=== PATIENT | female | born 1995 | race Caucasian/White ===

== ENCOUNTER 2023-03-24 15:10 | Inpatient (IN) | payer MEDICAID, SELFPAY ==
[2023-03-24 15:22] VITALS: BP 143/77; PULSE 95; TEMP 36.6; O2SAT 95; BMI 41.1
--- NOTE | 2023-03-24 15:45 | CTR_ITS ---
PROCEDURE INFORMATION: Exam: CT Head Without Contrast Exam date and time: 03/24/2023 4:30 PM Age: 27 years old Clinical indication: Pain; Headache; Migraine; Additional info: Persistent headache TECHNIQUE: Imaging protocol: Computed tomography of the head without contrast. Axial, coronal and sagittal reformatted images were created and reviewed. Radiation optimization: All CT scans at this facility use at least one of these dose optimization techniques: automated exposure control; mA and/or kV adjustment per patient size (includes targeted exams where dose is matched to clinical indication); or iterative reconstruction. REPORTING DATA: Count of CT and Cardiac NM exams in prior 12 months: This patient has received 0 known CTs and 0 known cardiac nuclear medicine studies in the 12 months prior to the current study. COMPARISON: No relevant prior studies available. RADIATION DOSE METRICS: Total DLP (mGy-cm): 1080.89 FINDINGS: Brain: No CT evidence of acute intracranial hemorrhage or acute territorial infarction. No significant mass effect or midline shift. Basal cisterns patent. Cerebral ventricles: Normal in size and configuration. Paranasal sinuses: Mild polypoid right maxillary sinus mucosal thickening. Mastoid air cells: Grossly unremarkable. Bones/joints: No acute osseous abnormality. Soft tissues: Grossly unremarkable. CT/CT head wo con* [id number] IMPRESSION: 1[address] No CT evidence of acute intracranial pathology. 2. Additional findings, as above.
--- NOTE | 2023-03-24 15:59 | PC.PHAR ---
PT STATES TAKES CHLORPROMAZINE 50 MG THREE TIMES DAILY. CLONAZEPAM 1 MG TWICE DAILY NEEDED. PRAZOSIN 2 MG EVERY EVENING. QETIAPINE 300 MG EVERY EVENING. MELATONIN 5 MG (NOT SURE WHAT STRENGTH) EVERY EVENING. [facility] STATES SHE IS NO LONGER A CLIENT THERE AND DO NOT SHOW HER IN ANY OF THE REMAINING HOMES IN [place]. 03/24/23
[2023-03-24 16:18] LABS: Basophils # 0.1 10^3/uL (0.0-0.1); Basophils % 0.7 %; Eosinophils # 0.1 10^3/uL (0.0-0.8); Eosinophils % 1.9 %; Hematocrit 41.3 % (36-47); Lymphocytes # 2.9 10^3/uL (0.8-4.8); Lymphocytes % 38.9 %; Mean Corpuscular HGB Conc 33.2 g/dL (30-55); Mean Corpuscular Hemoglobin 30.1 pg (27-33); Mean Corpuscular Volume 90.8 fl (85-98); Mean Platelet Volume 10.9 fL (7.4-10.4); Monocytes # 0.5 10^3/uL (0.2-0.9); Monocytes % 6.5 %; Neutrophils # 3.79 10^3/uL (1.8-7.7); Neutrophils % 51.7 %; Nucleated Red Blood Cells % 0 %; Platelet Count 231 10^3/cmm (157-399); Red Blood Count 4.55 10^6/uL (3.85-5.65); Red Cell Distribution Width 12.6 % (12.1-15.1); White Blood Count 7.33 10^3/uL (3.29-11.43)
--- NOTE | 2023-03-24 16:21 | W.ED.GENADLT ---
HPI - General Adult General: Chief complaint: Psychiatric Symptoms Stated complaint: Gen weakness/ Headache Time Seen by Provider: 03/24/23 15:19 History of Present Illness: 27-year-old female presents to the emergency department chief complaint of acute on chronic headache. Patient reports she been having the most recent headache the last couple of days reports she had been off medication for quite some time patient does report having history of bipolar and PTSD patient reports that she is away from her house where she normally lives she reports no other associated symptoms reports she did not take any medications for this prior to arrival. Patient endorses moderate nausea with her headache she reports no photophobia or any recent injury. Patient presents via EMS for further assessment and management Associated symptoms: Reports headache(s); Deny chest pain, dyspnea, malaise, nausea, rash, palpitations or vomiting Review of Systems General: Reports: 10 or more systems reviewed and unremarkable except in HPI and below Const: Denies: fever(s), chills, fatigue or malaise Eyes: Denies: change in vision or blurry vision Card: Denies: chest pain or palpitations Resp: Denies: dyspnea or productive cough GI: Denies: abdominal pain, nausea or vomiting : Denies: flank pain Musc: Denies: extremity pain or extremity swelling Skin/Breast: Denies: rash or pruritus Neuro: Reports: headache(s) and dizziness Psych: Denies: anxiety or depression Arron/Lymph: Denies: easy bleeding All/Imm: Denies: urticaria, throat swelling or facial swelling Physical Exam Narrative: EXAM NARRATIVE: Patient currently complaining of a headache no focal neurodeficits appreciated exam patient is does have some photophobia on exam Const: COMMON NORMALS: no acute distress, patient oriented x3 and healthy appearing HENMT: COMMON NORMALS: normocephalic and atraumatic HEAD & SCALP: normocephalic and atraumatic Eye: COMMON NORMALS: Equal, round and reactive pupils present and EOMs intact bilaterally PUPIL: Yes Equal, round and reactive pupils present Neck/C-Spine: COMMON NORMALS: full ROM, supple and no JVD Lymph: LYMPHATIC: no lymphadenopathy noted Chest: COMMONS NORMALS: normal inspection of the chest and normal palpation of entire chest wall Resp: COMMON NORMALS: normal respiratory effort, No retractions and clear to auscultation bilaterally EFFORT & INSPECTION: Yes able to speak in complete sentences and Yes symmetric chest movement AUSCULTATION: clear to auscultation bilaterally Cardio: COMMON NORMALS: no JVD, regular rate and regular rhythm RATE: regular rate RHYTHM: regular rhythm GI: COMMON NORMALS: Normal to inspection, nondistended, normoactive bowel sounds present, Soft to palpation and non-tender INSPECTION: Yes normal to inspection PALPATION: Yes Soft to palpation : COMMON NORMALS: Yes no CVA tenderness BLADDER/KIDNEY EXAM: Yes no CVA tenderness Back/Pelvis: COMMON NORMALS: no CVA tenderness Extremity: COMMON NORMALS: normal to inspection and full ROM Neuro: COMMON NORMALS: patient oriented x3, CN's II-XII intact bilaterally, moves all extremities and no focal motor deficits Psych: COMMON NORMALS: mental status grossly normal, Normal thought process present, cooperative and normal affect THOUGHT PROCESS: Normal thought process present Skin: COMMON NORMALS: no rashes or lesions noted GENERAL SKIN EXAM: no rashes or lesions noted Course Vital Signs: Vital signs: Vital Signs Temperature 97.9 F 03/24/23 15:22 Pulse Rate 95 03/24/23 15:22 Blood Pressure 143/77 03/24/23 15:22 Pulse Oximetry 95 03/24/23 15:22 Oxygen Delivery Me thod Room Air 03/24/23 15:22 MDM - General Adult Medical Decision Making Upon direct questioning no suicidal homicidal thoughts or ideation it has been brought to my attention however the patient is a runaway from a reported court ordered 96-hour skilled nursing hold in [facility] we will do a medical screening examination patient does not have her own guardian in which she is under the guardianship of the state, currently risk-management is involved in making further phone calls in regards this patient's case will do medical screening examination and treat as needed. Discussed patient's case with risk-management in which patient has had 2 affidavits she is not only a guardian which is recommended patient admitted to Dr. Falk due to her 96-hour hold placed in [place] area the patient remained in stable condition at this time. Lab Data 03/24/23 16:04 03/24/23 16:[address] 03/24/23 15:[address]: [address] evidence of acute intracranial pathology. 2. Additional findings, as above. Laboratory Results WBC 7.33 10^3/uL (3.29-11.43) 03/24/23 16:04 RBC 4.55 10^6/uL (3.85-5.65) 03/24/23 16:04 Hgb 13.70 g/dL (11.27-16.99) 03/24/23 16:04 Hct 41.3 % (36-47) 03/24/23 16:04 MCV 90.8 fl (85-98) 03/24/23 16:04 MCH 30.1 pg (27-33) 03/24/23 16:04 MCHC 33.2 g/dL (30-55) 03/24/23 16:04 RDW 12.6 % (12.1-15.1) 03/24/23 16:04 Plt Count 231 10^3/cmm (157-399) 03/24/23 16:04 MPV 10.9 fL (7.4-10.4) H 03/24/23 16:04 Neut % (Auto) 51.7 % 03/24/23 16:04 Lymph % (Auto) 38.9 % 03/24/23 16:04 [place] % (Auto) 6.5 % 03/24/23 16:04 Eos % (Auto) 1.9 % 03/24/23 16:04 Baso % (Auto) 0.7 % 03/24/23 16:04 Neut # (Auto) 3.79 10^3/uL (1.8-7.7) 03/24/23 16:04 Lymph # (Auto) 2.9 10^3/uL (0.8-4.8) 03/24/23 16:04 [place] # (Auto) 0.5 10^3/uL (0.2-0.9) 03/24/23 16:04 Eos # (Auto) 0.1 10^3/uL (0.0-0.8) 03/24/23 16:04 Baso # (Auto) 0.1 10^3/uL (0.0-0.1) 03/24/23 16:04 Nucleated RBC % (auto) 0 % 03/24/23 16:04 Nucleated RBCs # 0.0 /100WBC 03/24/23 16:04 Sodium 144 mmol/L (136-145) 03/24/23 16:04 Potassium 3.2 mmol/L (3.5-5.1) L 03/24/23 16:04 Chloride 104 mmol/L (98-107) 03/24/23 16:04 Carbon Dioxide 32 mmol/L (22-29) H 03/24/23 16:04 Anion Gap 11.2 (5-19) 03/24/23 16:04 BUN 12 mg/dL (6-20) 03/24/23 16:04 Creatinine 0.7 mg/dL (0.5-0.9) 03/24/23 16:04 GFR Calculation 100.4 mL/min (90-130) 03/24/23 16:04 Glucose 108 mg/dL (65-115) 03/24/23 16:04 Calculated Osmolality 298 mOsm/kg (285-295) H 03/24/23 16:04 Calcium 9.3 mg/dL (8.5-10.5) 03/24/23 16:04 Total Bilirubin 0.2 mg/dL (0.15-1.2) 03/24/23 16:04 AST 20 U/L (0-32) 03/24/23 16:04 ALT 29 U/L (0-33) 03/24/23 16:04 Alkaline Phosphatase 63 U/L (35-105) 03/24/23 16:04 Total Protein 6.5 g/dL (6.6-8.7) L 03/24/23 16:04 Albumin 4.2 g/dL (3.5-5.2) 03/24/23 16:04 Globulin 2.3 g/dL (1.3-4.6) 03/24/23 16:04 Urine Color Dark yellow (Yellow) 03/24/23 16:29 Urine Appearance Sl cloudy (CLEAR) A 03/24/23 16:29 Urine pH 6 (5-7) 03/24/23 16:29 Ur Specific [place] 1.025 (1.005-1.030) 03/24/23 16:29 Urine Protein Neg (Negative) 03/24/23 16:29 Urine Glucose (UA) Norm (Normal) 03/24/23 16:29 Urine Ketones Negative (Negative) 03/24/23 16:29 Urine Blood 2+ (Negative) H 03/24/23 16:29 Urine Nitrate Negative (Negative) 03/24/23 16:29 Urine Bilirubin 1+ (Negative) H 03/24/23 16:29 Urine Urobilinogen 1 mg/dL (Negative) H 03/24/23 16:29 Ur Leukocyte Esterase Negative (Negative) 03/24/23 16:29 Urine RBC 0-4 /hpf (0-2) H 03/24/23 16:29 Urine WBC 0-4 /hpf (0-5) H 03/24/23 16:29 Ur Squamous Epith Cells 25-40 /hpf (0-5) H 03/24/23 16:29 Calcium Oxalate Crystal 0-4 /hpf H 03/24/23 16:29 Amorphous Sediment Not Reportable 03/24/23 16:29 Urine Bacteria 1+ /hpf (NONE) H 03/24/23 16:29 Urine Mucus 1+ /hpf 03/24/23 16:29 Salicylates 1.0 mg/dL (3-10) L 03/24/23 16:04 Acetaminophen < 5.0 ug/mL (10-30) L 03/24/23 16:04 Ethyl Alcohol < 10 mg/dL (0-10) 03/24/23 16:04 Discharge Plan Discharge Patient Disposition: Admitted As Inpatient Admit Provider: Fernie Falk Clinical Impression: Acute psychosis, Depression Condition: Stable Coding Level of Care Code ED [employer] for Bhavik Nash
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
[2023-03-24 16:34] LABS: Alanine Aminotransferase 29 U/L (0-33); Albumin Level 4.2 g/dL (3.5-5.2); Alkaline Phosphatase 63 U/L (35-105); Anion Gap 11.2 (5-19); Aspartate Amino Transferase 20 U/L (0-32); Blood Urea Nitrogen 12 mg/dL (6-20); Calcium 9.3 mg/dL (8.5-10.5); Carbon Dioxide 32 mmol/L (22-29); Chloride 104 mmol/L (98-107); Globulin 2.3 g/dL (1.3-4.6); Glomerular Filtration Rate 100.4 mL/min (90-130); Glucose 108 mg/dL (65-115); Osmolality Calculated 298 mOsm/kg (285-295); Potassium 3.2 mmol/L (3.5-5.1); Sodium 144 mmol/L (136-145); Total Bilirubin 0.2 mg/dL (0.15-1.2); Total Protein 6.5 g/dL (6.6-8.7)
[2023-03-24 16:35] LABS: Acetaminophen < 5.0 ug/mL (10-30); Alcohol Level < 10 mg/dL (0-10)
--- NOTE | 2023-03-24 16:47 | PC.NURSE ---
PT CHANGED INTO GREEN SCRUBS, PLACED IN PSYCH ROOM, PSA OUTSIDE. DOOR SHUT, CURTAINS OPEN.
[2023-03-24] MEDS: sodium chloride 0.9% 1,000 ML 999 ML IV (16:53)
[2023-03-24] MEDS: dexamethasone 10 mg/mL INJ IVP (16:55)
[2023-03-24] MEDS: ketorolac 30 mg/mL INJ IVP (16:55)
[2023-03-24] MEDS: diphenhydrAMINE 50 mg/mL SDV 1mL 25 MG IVP (16:55)
[2023-03-24 17:17] VITALS: BP 124/91; PULSE 96; RESP 18; TEMP 36.9; O2SAT 96
[2023-03-24 17:55] LABS: Bilirubin Urine 1+ (Negative); Glucose Urine UA Norm (Normal); Ketones Urine Negative (Negative); Nitrate Urine Negative (Negative); Protein Urine Neg (Negative); Specific Gravity, Urine 1.025 (1.005-1.030); Urine Color Dark Yellow (Yellow); pH Urine 6 (5-7)
[2023-03-24 17:56] LABS: Add Urine Microscopic? YES; Bacteria Urine 1+ /hpf; Blood Urine 2+ (Negative); Calcium Oxalate Crystals Urine 0-4 /hpf; Leukocyte Esterase Urine Negative (Negative); Mucus Urine 1+ /hpf; RBC Urine 0-4 /hpf (0-2); Squamous Epithelial Cell Urine 25-40 /hpf (0-5); Urobilinogen Urine 1 mg/dL (Negative); WBC Urine 0-4 /hpf (0-5)
[2023-03-24 17:57] LABS: Add Urine Culture? No
[2023-03-24 18:19] LABS: Amphetamines Screen Urine Positive (Negative); Barbiturates Screen Urine Negative (Negative); Benzodiazepines Screen Urine Negative (Negative); Cocaine Screen Urine Negative (Negative); Opiate Screen Urine Negative (Negative); PCP Screen Urine Negative (Negative); THC Screen Urine Positive (Negative)
[2023-03-24 20:01] LABS: Adenovirus Not Detected (NOT DETECT); Chlamydia Pneumoniae Not Detected (NOT DETECT); Coronavirus 229E,HKU1,NL63,OC4 Not Detected (NOT DETECT); Human Metapneumovirus Not Detected (NOT DETECT); Human Rhinovirus/Enterovirus Not Detected (NOT DETECT); Influenza A Not Detected (NOT DETECT); Influenza A H1 Not Detected (NOT DETECT); Influenza A H1-2009 Not Detected (NOT DETECT); Influenza A H3 Not Detected (NOT DETECT); Influenza B Not Detected (NOT DETECT); Mycoplasma Pneumoniae Not Detected (NOT DETECT); Parainfluenza Virus Type 1 Not Detected (NOT DETECT); Parainfluenza Virus Type 2 Not Detected (NOT DETECT); Parainfluenza Virus Type 3 Not Detected (NOT DETECT); Parainfluenza Virus Type 4 Not Detected (NOT DETECT); Respiratory Syncytial Virus A Not Detected (NOT DETECT); Respiratory Syncytial Virus B Not Detected (NOT DETECT); SARS-COV-2 Not Detected (NOT DETECT)
[2023-03-24] MEDS: quetiapine 300 mg Tablet PO (20:28)
[2023-03-24] MEDS: prazosin 1 mg Capsule 2 MG PO (20:28)
[2023-03-24] MEDS: chlorPROMazine 50 mg Tablet PO (20:28)
--- NOTE | 2023-03-24 20:34 | PC.NURSE ---
PT RESTING IN BED. PT REFUSED VITALS AND SHIFT ASSESSMENT. WHEN STAFF ENTERS ROOM PT REMAINS IN BED WITH EYES CLOSED AND SAYS SHE DOES NOT WANT TO BE BOTHERED. THIS DATABASE MARKETING MANAGER ATTEMPTED TO CALL GUARDIAN AT THE NUMBER PROVIDED BUT HAD TO LEAVE A VM @ 1999.
--- NOTE | 2023-03-24 20:52 | PC.NURSE ---
This tech went into patients room to do vitals. Patient was laying down wrapped up in a blanket. Stated no i just cant no No vitals taken
[2023-03-25 06:00] VITALS: BP 91/58; PULSE 83; RESP 20; TEMP 36.9; O2SAT 97
[2023-03-25] MEDS: chlorPROMazine 50 mg Tablet PO ×3 (08:41→19:57)
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
[2023-03-25 14:00] VITALS: BP 120/74; PULSE 89; RESP 17; TEMP 37; O2SAT 96
[2023-03-25] MEDS: acetaminophen 325 mg Tablet 650 MG PO (18:18)
[2023-03-25] MEDS: hyDROXYzine 25 mg Capsule 50 MG PO (18:18)
[2023-03-25] MEDS: prazosin 1 mg Capsule 2 MG PO (19:56)
[2023-03-25] MEDS: quetiapine 300 mg Tablet PO (19:57)
[2023-03-25] MEDS: magnesium hydroxide 30 mL UDC PO (19:57)
[2023-03-25 20:04] VITALS: BP 130/85; PULSE 120; RESP 20; TEMP 37; O2SAT 96
--- NOTE | 2023-03-25 20:43 | PC.NURSE ---
RESTING IN BED UPON ASSESSMENT. PT DID NOT WANT TO SPEAK WITH RN BUT DID ANSWER QUESTIONS YES/NO. PT STATES SHE HAS NOT HAD A BM IN A REALLY LONG TIME. NEW ORDERS RECEIVED FOR MOM 30 MLS PO DAILY PRN. BOWEL SOUNDS HYPOACTIVE IN ALL FOUR QUADRANTS, ROUND SOFT AND NON TENDER. PT TOOK PM MEDS AND MOM ORDERED. PT EDUCATED TO REPORT IF SHE HAS A BM. DENIES PAIN, SI/HI AND AVH AT THIS TIME. ALL QUESTIONS ANSWERED AND SUPPORT VOICED.
[2023-03-26 06:00] VITALS: RESP 18
[2023-03-26] MEDS: chlorPROMazine 50 mg Tablet PO ×3 (09:09→19:55)
--- NOTE | 2023-03-26 10:27 | W.PM.NPUPNS ---
Subjective NPU Subjective: Patient presented today slightly more engaging in the interview. She was willing to be more communicative but basically spent the entire time describing the fact that she did not need any interventions and did not need to be there. However she did not have any trauma for the positive drug screens and likely drug use. She was ambivalent about discussion about sober living treatment. Mental Status Exam MSE Comments: This is an obese versus morbidly obese white female in hospital scrubs with poor grooming and limited eye contact. No abnormal movements except for psychomotor retardation. More cooperative with exam in mild distress. Speech was very limited and decreased rate and volume. Mood not described, affect subdued. Thought process linear. Thought content: Patient did not report suicidal or homicidal ideation, there were no delusions reported or noted, though she did appear quite guarded she did not report auditory or visual hallucinations and did not appear to be attending to internal stimuli. Attention and concentration were limited and memory was unreliable but none were formally tested. She is alert and oriented times person and place. Insight, judgment and impulse control are impaired. Intellectual ability is limited versus impaired. Vitals/I&O/Wt Last Vital Signs Temp 98.6 F 03/25/23 20:04 Pulse 120 H 03/25/23 20:04 Resp 18 03/26/23 06:00 BP 130/85 03/25/23 20:04 Pulse Ox 96 03/25/23 20:04 O2 Del Method Room Air 03/25/23 20:04 Weight last 48 hrs Weight 108.862 kg Data NPU 03/24/23 16:04 03/24/23 16:04 A&P Assessment and plan (1) Acute psychosis: (2) Depression: (3) Intellectual disability: (4) Impulse control disorder in adult: (5) Cannabis use disorder: (6) Methamphetamine use disorder, severe: Plan This is a 27-year-old white female with a long history of intellectual disability and mental health challenges who presented hours away from her home after reportedly running away from her correction setting as a reluctant or resistant historian. 1. Continue current medication. We will talk to family about whether there would be some benefit to changes. 2. Continue every 15 minute checks for safety. 3. Encourage individual, group and milieu therapy. 4. Family reportedly desiring placement in a locked facility. We can likely assist with the level 2 placement but unclear whether there is an indication for us to keep her until that placement occurs. [facility]. Involuntary Hold Information 96 Hour Hold: 96 Hour Involuntary Admission: No Attestations NPU Medical Necessity Statement*: Inpatient hospitalization is medically necessary and the clinically appropriate intervention at this time. We will monitor medications and make changes as indicated. Likely length of stay 3 to 5 days. Coding Level of Care Code Acute Code for g Fwd Diagnoses Acute psychosis F23 Depression F32.A Intellectual disability F79 Impulse control disorder in adult F63.9 Cannabis use disorder F12.90 Methamphetamine use disorder, severe F15.20
--- NOTE | 2023-03-26 13:52 | PC.NURSE ---
Patient refusing to talk with nurses and refusing vitals.
[2023-03-26 14:00] VITALS: RESP 17
[2023-03-26 15:25] VITALS: BP 132/86; PULSE 88; RESP 18; TEMP 37.1; O2SAT 97
[2023-03-26] MEDS: acetaminophen 325 mg Tablet 650 MG PO (17:54)
[2023-03-26] MEDS: hyDROXYzine 25 mg Capsule 50 MG PO (17:54)
--- NOTE | 2023-03-26 19:42 | NUR.SHIFT ---
pt refusing to talk with nurse, when I asked if I could listen to her heart and lungs, patient stated, no they're fine
[2023-03-26] MEDS: prazosin 1 mg Capsule 2 MG PO (19:55)
[2023-03-26] MEDS: quetiapine 300 mg Tablet PO (19:55)
--- NOTE | 2023-03-26 20:14 | PC.NURSE ---
This tech accompanied by the COMMERCIAL ACCOUNT OFFICER went into patients room to obtain vitals. Patient stated what. This tech told patients that I needed to get her vitals. Patient stated no that her vitals were fine. I let patient know that we really needed her vitals. Patient again stated that they were fine and refused.
--- NOTE | 2023-03-27 06:24 | PC.NURSE ---
Tech and MOSAIC TECHNICIAN went into the patients room to obtain vitals. I let patient know that we needed her vitals and patient stated no way . Not hearing patient clearly This tech asked again and patient stated I said no way Unable to obtain vitals again due to patient refusal.
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
[2023-03-27] MEDS: chlorPROMazine 50 mg Tablet PO ×3 (08:57→20:29)
[2023-03-27 14:40] VITALS: BP 127/84
--- NOTE | 2023-03-27 14:40 | PC.NURSE ---
patient refused to have the rest of her vitals taken, B/P only done
[2023-03-27] MEDS: nicotine 2 mg Gum BUCCAL (16:38)
[2023-03-27] MEDS: acetaminophen 325 mg Tablet 650 MG PO (18:31)
[2023-03-27 20:05] VITALS: BP 144/88; PULSE 101; RESP 16; TEMP 36.6; O2SAT 99
[2023-03-27] MEDS: prazosin 1 mg Capsule 2 MG PO (20:29)
[2023-03-27] MEDS: quetiapine 300 mg Tablet PO (20:29)
[2023-03-27] MEDS: trazodone 50 mg Tablet PO (20:29)
[2023-03-28 06:00] VITALS: BP 105/71; PULSE 72; RESP 16; O2SAT 97
--- NOTE | 2023-03-28 07:52 | P.NPUPN_ITS ---
Subjective NPU Subjective: Patient presents today continuing her improvement of spontaneity per reports and interview. She continues to endorse that she is fine and can return to the [facility]. We discussed a plan to talk with her family to determine our next move. Mental Status Exam MSE Comments: This is an obese versus morbidly obese white female in hospital scrubs with poor grooming and limited eye contact. No abnormal movements except for psychomotor retardation. More cooperative with exam in mild distress. Speech was more spontaneous and decreased rate and volume. Mood described as better, affect less subdued. Thought process linear. Thought content: Patient did not report suicidal or homicidal ideation, there were no delusions reported or noted, though she did appear quite guarded she did not report auditory or visual hallucinations and did not appear to be attending to internal stimuli. Attention and concentration were limited and memory was unreliable but none were formally tested. She is alert and oriented times person and place. Insight, judgment and impulse control are impaired. Intellectual ability is limited versus impaired. Vitals/I&O/Wt Last Vital Signs Temp 97.8 F 03/27/23 20:05 Pulse 72 03/28/23 06:00 Resp 16 03/28/23 06:00 BP 105/71 03/28/23 06:00 Pulse Ox 97 03/28/23 06:00 O2 Del Method Room Air 03/26/23 15:25 Weight last 48 hrs Weight 116.392 kg Data NPU 03/24/23 16:04 03/24/23 16:04 A&P Assessment and plan (1) Acute psychosis: (2) Depression: (3) Intellectual disability: (4) Impulse control disorder in adult: (5) Cannabis use disorder: (6) Methamphetamine use disorder, severe: Plan This is a 27-year-old white female with a long history of intellectual disability and mental health challenges who presented hours away from her home after reportedly running away from her [facility]dc setting as a reluctant or resistant historian. 1. Continue current medication. We will talk to family about whether there would be some benefit to changes. 2. Continue every 15 minute checks for safety. 3. Encourage individual, group and milieu therapy. 4. Family reportedly desiring placement in a locked facility. We can likely assist with the level 2 placement but unclear whether there is an indication for us to keep her until that placement occurs. Likely discharge back to [facility]. Involuntary Hold Information 96 Hour Hold: 96 Hour Involuntary Admission: No Attestations NPU Medical Necessity Statement*: Inpatient hospitalization is medically necessary and the clinically appropriate intervention at this time. We will monitor medications and make changes as indicated. Likely length of stay 2-4 days. Coding Level of Care Code Acute Code for Chg Fwd Diagnoses Acute psychosis F23 Depression F32.A Intellectual disability F79 Impulse control disorder in adult F63.9 Cannabis use disorder F12.90 Methamphetamine use disorder, severe F15.20
[2023-03-28] MEDS: chlorPROMazine 50 mg Tablet PO ×3 (12:03→20:14)
[2023-03-28] MEDS: acetaminophen 325 mg Tablet 650 MG PO (12:19)
[2023-03-28 12:58] VITALS: BP 99/65; PULSE 91; RESP 14; TEMP 36.9; O2SAT 100
[2023-03-28 20:08] VITALS: BP 103/70; PULSE 81; RESP 12; O2SAT 96
[2023-03-28] MEDS: quetiapine 300 mg Tablet PO (20:14)
[2023-03-28] MEDS: prazosin 1 mg Capsule 2 MG PO (20:14)
[2023-03-29] MEDS: chlorPROMazine 50 mg Tablet PO ×3 (09:34→21:36)
--- NOTE | 2023-03-29 09:51 | PC.NURSE ---
During morning assessment, patient reports feeling like her head is mixed up. Patient says she has felt this way before, and couldn't identify a trigger. Patient reports occassional AVH--denies being told to harm self or others. Patient cooperative during assessment. Patient denies anxiety, depression, SI, and HI.
[2023-03-29 13:14] VITALS: BP 94/62; PULSE 100; RESP 16; TEMP 36.8; O2SAT 96
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
[2023-03-29] MEDS: acetaminophen 325 mg Tablet 650 MG PO ×2 (17:43→23:49)
[2023-03-29] MEDS: nicotine 2 mg Gum BUCCAL (17:44)
[2023-03-29] MEDS: hyDROXYzine 25 mg Capsule 50 MG PO (18:37)
[2023-03-29 19:56] VITALS: BP 96/63; PULSE 70; RESP 15; TEMP 36.6; O2SAT 98
[2023-03-29] MEDS: trazodone 50 mg Tablet PO (19:57)
[2023-03-29] MEDS: prazosin 1 mg Capsule 2 MG PO (21:36)
[2023-03-29] MEDS: quetiapine 300 mg Tablet PO (21:36)
[2023-03-30 06:41] VITALS: BP 98/61; PULSE 71; RESP 17; TEMP 37; O2SAT 96
[2023-03-30] MEDS: CLONazepam 1 mg Tablet PO ×2 (08:25→20:04)
[2023-03-30] MEDS: chlorPROMazine 50 mg Tablet PO ×3 (08:25→20:04)
[2023-03-30] MEDS: nicotine 2 mg Gum BUCCAL ×3 (08:58→19:06)
--- NOTE | 2023-03-30 13:01 | W.PM.NPUPNS ---
Subjective NPU Subjective: Patient presented today reporting that she is doing okay. We discussed her guardian not being communicative about concerns about discharge with no clear issue now that she is taking her medication and sober. Hoping to speak with guardian by tomorrow and if no additional information is presented we discussed the likelihood of discharge on . We discussed that we did complete the level 2 paperwork and that that option would still be available for family and guardian. She denies any issues with her medications which she is taking appropriately. Mental Status Exam MSE Comments: This is an obese versus morbidly obese white female in hospital scrubs with poor grooming and limited eye contact. No abnormal movements except for psychomotor retardation. More cooperative with exam in mild distress. Speech was more spontaneous and decreased rate and volume. Mood described as better, affect less subdued. Thought process linear. Thought content: Patient did not report suicidal or homicidal ideation, there were no delusions reported or noted, though she did appear quite guarded she did not report auditory or visual hallucinations and did not appear to be attending to internal stimuli. Attention and concentration were limited and memory was unreliable but none were formally tested. She is alert and oriented times person and place. Insight, judgment and impulse control are impaired. Intellectual ability is limited versus impaired. Vitals/I&O/Wt Last Vital Signs Temp 98.6 F 03/30/23 06:41 Pulse 71 03/30/23 06:41 Resp 17 03/30/23 06:41 BP 98/61 03/30/23 06:41 Pulse Ox 96 03/30/23 06:41 O2 Del Method Room Air 03/29/23 19:56 Data NPU 03/24/23 16:04 03/24/23 16:04 A&P Assessment and plan (1) Acute psychosis: (2) Depression: (3) Intellectual disability: (4) Impulse control disorder in adult: (5) Cannabis use disorder: (6) Methamphetamine use disorder, severe: Plan This is a 27-year-old white female with a long history of intellectual disability and mental health challenges who presented hours away from her home after reportedly running away from her intermediate setting as a reluctant or resistant historian. 1. Continue current medication. 2. Continue every 15 minute checks for safety. 3. Encourage individual, group and milieu therapy. 4. Family/guardian reportedly desiring placement in a locked facility. We can likely assist with the level 2 placement but unclear whether there is an indication for us to keep her until that placement occurs. Likely discharge back to [facility]. Level 2 documentation prepared. Trying to connect with guardian about whether medical necessity exists for hospitalization until when this new facility would be ready. Current plan for discharge on . Involuntary Hold Information 96 Hour Hold: 96 Hour Involuntary Admission: No Attestations NPU Medical Necessity Statement*: Inpatient hospitalization is medically necessary and the clinically appropriate intervention at this time. We will monitor medications and make changes as indicated. Likely length of stay 1-3 days. Coding Level of Care Code Acute Code for Chg Fwd Diagnoses Acute psychosis F23 Depression F32.A Intellectual disability F79 Impulse control disorder in adult F63.9 Cannabis use disorder F12.90 Methamphetamine use disorder, severe F15.20
[2023-03-30 14:15] VITALS: BP 94/56; PULSE 106; RESP 15; TEMP 36.9; O2SAT 96
[2023-03-30] MEDS: acetaminophen 325 mg Tablet 650 MG PO (20:03)
[2023-03-30] MEDS: quetiapine 300 mg Tablet PO (20:04)
[2023-03-30] MEDS: prazosin 1 mg Capsule 2 MG PO (20:04)
[2023-03-30] MEDS: trazodone 50 mg Tablet PO (20:04)
[2023-03-30 20:29] VITALS: BP 108/72; PULSE 116; RESP 18; TEMP 36.5; O2SAT 96
[2023-03-31 06:00] VITALS: RESP 16
[2023-03-31] MEDS: chlorPROMazine 50 mg Tablet PO ×3 (09:07→20:42)
--- NOTE | 2023-03-31 09:49 | P.NPUPN_ITS ---
Subjective NPU Subjective: Patient presented today reporting that she is doing okay. She is reporting that she is just ready to return her to the [facility] and continues to deny a need for more intensive treatment, just better choices. She denies any issues on the unit we discussed still not having a clear discussion with her guardian but plans for likely discharge in the next 48 hours. Mental Status Exam MSE Comments: This is an obese versus morbidly obese white female in hospital scrubs with poor grooming and limited eye contact. No abnormal movements except for psychomotor retardation. More cooperative with exam in mild distress. Speech was more spontaneous and decreased rate and volume. Mood described as better, affect less subdued. Thought process linear. Thought content: Patient did not report suicidal or homicidal ideation, there were no delusions reported or noted, though she did appear quite guarded she did not report auditory or visual hallucinations and did not appear to be attending to internal stimuli. Attention and concentration were limited and memory was unreliable but none were formally tested. She is alert and oriented times person and place. Insight, judgment and impulse control are impaired. Intellectual ability is limited versus impaired. Vitals/I&O/Wt Last Vital Signs Temp 97.7 F 03/30/23 20:29 Pulse 116 H 03/30/23 20:29 Resp 16 03/31/23 06:00 BP 108/72 03/30/23 20:29 Pulse Ox 96 03/30/23 20:29 O2 Del Method Room Air 03/30/23 14:15 Data NPU 03/24/23 16:04 03/24/23 16:04 A&P Assessment and plan (1) Acute psychosis: (2) Depression: (3) Intellectual disability: (4) Impulse control disorder in adult: (5) Cannabis use disorder: (6) Methamphetamine use disorder, severe: Plan This is a 27-year-old white female with a long history of intellectual disability and mental health challenges who presented hours away from her home after reportedly running away from her nursing home setting as a reluctant or resistant historian. 1. Continue current medication. 2. Continue every 15 minute checks for safety. 3. Encourage individual, group and milieu therapy. 4. Family/guardian reportedly desiring placement in a locked facility. We can likely assist with the level 2 placement but unclear whether there is an indication for us to keep her until that placement occurs. Likely discharge b ack to [facility]. Level 2 documentation prepared. Trying to connect with guardian about whether medical necessity exists for hospitalization until when this new facility would be ready. Current plan for discharge on . Involuntary Hold Information 96 Hour Hold: 96 Hour Involuntary Admission: No Attestations NPU Medical Necessity Statement*: Inpatient hospitalization is medically necessary and the clinically appropriate intervention at this time. We will monitor medications and make changes as indicated. Likely length of stay 1-2 days. Coding Level of Care Code Acute Code for g Fwd Diagnoses Acute psychosis F23 Depression F32.A Intellectual disability F79 Impulse control disorder in adult F63.9 Cannabis use disorder F12.90 Methamphetamine use disorder, severe F15.20
[2023-03-31] MEDS: CLONazepam 1 mg Tablet PO (13:22)
[2023-03-31] MEDS: nicotine 2 mg Gum BUCCAL ×2 (13:24→18:28)
[2023-03-31 13:40] VITALS: BP 114/81; PULSE 108; RESP 18; TEMP 36.8; O2SAT 96
[2023-03-31] MEDS: blistex lip oint 7 gm Tube 1 APPLIC TOPICAL ×2 (14:37→18:26)
[2023-03-31 20:22] VITALS: BP 127/85; PULSE 111; RESP 17; TEMP 36.7; O2SAT 97
[2023-03-31] MEDS: trazodone 50 mg Tablet PO (20:40)
[2023-03-31] MEDS: prazosin 1 mg Capsule 2 MG PO (20:41)
[2023-03-31] MEDS: quetiapine 300 mg Tablet PO (20:41)
[2023-03-31] MEDS: ibuprofen 600 mg Tablet PO (21:09)
[2023-04-01 06:00] VITALS: RESP 18
--- NOTE | 2023-04-01 06:36 | PC.NURSE ---
Unable to obtain vitals. Unable to wake patient up due to deeply sleeping.
[2023-04-01] MEDS: nicotine 2 mg Gum BUCCAL ×2 (09:10→11:12)
[2023-04-01] MEDS: chlorPROMazine 50 mg Tablet PO ×3 (09:10→20:13)
[2023-04-01] MEDS: CLONazepam 1 mg Tablet PO ×2 (09:10→20:36)
[2023-04-01] MEDS: blistex lip oint 7 gm Tube 1 APPLIC TOPICAL (11:47)
[2023-04-01 14:00] VITALS: BP 92/58; PULSE 88; RESP 16; TEMP 36.8; O2SAT 97
[2023-04-01 20:09] VITALS: BP 118/78; PULSE 96; RESP 16; TEMP 36.8; O2SAT 97
[2023-04-01] MEDS: prazosin 1 mg Capsule 2 MG PO (20:12)
[2023-04-01] MEDS: quetiapine 300 mg Tablet PO (20:12)
--- NOTE | 2023-04-01 23:55 | W.PM.NPUPNS ---
Subjective NPU Subjective: Patient presented today reporting that she is doing fine. We discussed finally speaking with her guardian's office and that we had a plan that involves her possibly discharging today but likely in the morning. She continues to report a plan to not miss behave or create challenges back at her [facility]. Mental Status Exam MSE Comments: This is an obese versus morbidly obese white female in hospital scrubs with poor grooming and limited eye contact. No abnormal movements except for psychomotor retardation. More cooperative with exam in mild distress. Speech was more spontaneous and decreased rate and volume. Mood described as better, affect less subdued. Thought process linear. Thought content: Patient did not report suicidal or homicidal ideation, there were no delusions reported or noted, though she did appear quite guarded she did not report auditory or visual hallucinations and did not appear to be attending to internal stimuli. Attention and concentration were limited and memory was unreliable but none were formally tested. She is alert and oriented times person and place. Insight, judgment and impulse control are impaired. Intellectual ability is limited versus impaired. Vitals/I&O/Wt Last Vital Signs Temp 98.2 F 04/01/23 20:09 Pulse 96 04/01/23 20:09 Resp 16 04/01/23 20:09 BP 118/78 04/01/23 20:09 Pulse Ox 97 04/01/23 20:09 O2 Del Method Room Air 04/01/23 20:09 Data NPU 03/24/23 16:04 03/24/23 16:04 A&P Assessment and plan (1) Acute psychosis: (2) Depression: (3) Intellectual disability: (4) Impulse control disorder in adult: (5) Cannabis use disorder: (6) Methamphetamine use disorder, severe: Plan This is a 27-year-old white female with a long history of intellectual disability and mental health challenges who presented hours away from her home after reportedly running away from her custodial setting as a reluctant or resistant historian. 1. Continue current medication. 2. Continue every 15 minute checks for safety. 3. Encourage individual, group and milieu therapy. 4. Family/guardian reportedly desiring placement in a locked facility. We can likely assist with the level 2 placement but unclear whether there is an indication for us to keep her until that placement occurs. Likely discharge back to [facility]. Level 2 documentation prepared. Trying to connect with guardian about whether medical necessity exists for hospitalization until when this new facility would be ready. Current plan for discharge on . Spoke to guardian's office and facility trying to find an alternative for her to go to while waiting for level 2 to clear. We agreed to discharge the morning and give him a little time to possibly make that happen. Involuntary Hold Information 96 Hour Hold: 96 Hour Involuntary Admission: No Attestations NPU Medical Necessity Statement*: Inpatient hospitalization is medically necessary and the clinically appropriate intervention at this time. We will monitor medications and make changes as indicated. Likely length of stay 1-2 days. Coding Level of Care Code Acute Code for Chg Fwd Diagnoses Acute psychosis F23 Depression F32.A Intellectual disability F79 Impulse control disorder in adult F63.9 Cannabis use disorder F12.90 Methamphetamine use disorder, severe F15.20
[2023-04-02 06:00] VITALS: BP 117/74; PULSE 107; RESP 15; O2SAT 98
[2023-04-02] MEDS: chlorPROMazine 50 mg Tablet PO ×3 (07:55→20:20)
[2023-04-02] MEDS: nicotine 2 mg Gum BUCCAL ×2 (08:27→13:06)
[2023-04-02] MEDS: blistex lip oint 7 gm Tube 1 APPLIC TOPICAL (08:27)
[2023-04-02] MEDS: nicotine 4 mg lozenge MUCOUS MEM (11:00)
[2023-04-02] MEDS: OLANZapine 5 mg ODT PO (11:51)
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
[2023-04-02 14:00] VITALS: BP 121/80; PULSE 60; RESP 17; TEMP 36.6; O2SAT 100
--- NOTE | 2023-04-02 14:32 | W.PM.NPUPNS ---
Subjective NPU Subjective: Patient presented today reporting that she is fine. She continues to deny any thoughts of caving in any way that would not be conducive to turning the [facility]. She acknowledged the role that her addiction and her relationship with the other resident played in her poor choices. Discussed the plan to discharge her back to [facility] today. Mental Status Exam MSE Comments: This is an obese versus morbidly obese white female in hospital scrubs with poor grooming and limited eye contact. No abnormal movements except for psychomotor retardation. More cooperative with exam in mild distress. Speech was more spontaneous and decreased rate and volume. Mood described as better, affect less subdued. Thought process linear. Thought content: Patient did not report suicidal or homicidal ideation, there were no delusions reported or noted, though she did appear quite guarded she did not report auditory or visual hallucinations and did not appear to be attending to internal stimuli. Attention and concentration were limited and memory was unreliable but none were formally tested. She is alert and oriented times person and place. Insight, judgment and impulse control are impaired. Intellectual ability is limited versus impaired. Vitals/I&O/Wt Last Vital Signs Temp 97.8 F 04/02/23 14:00 Pulse 60 04/02/23 14:00 Resp 17 04/02/23 14:00 BP 121/80 04/02/23 14:00 Pulse Ox 100 04/02/23 14:00 O2 Del Method Room Air 04/02/23 14:00 Data NPU 03/24/23 16:04 03/24/23 16:04 A&P Assessment and plan (1) Acute psychosis: (2) Depression: (3) Intellectual disability: (4) Impulse control disorder in adult: (5) Cannabis use disorder: (6) Methamphetamine use disorder, severe: Plan This is a 27-year-old white female with a long history of intellectual disability and mental health challenges who presented hours away from her home after reportedly running away from her [place] [facility] setting as a reluctant or resistant historian. 1. Continue current medication. 2. Continue every 15 minute checks for safety. 3. Encourage individual, group and milieu therapy. 4. Family/guardian reportedly desiring placement in a locked facility. We can likely assist with the level 2 placement but unclear whether there is an indication for us to keep her until that placement occurs. Likely discharge back to [facility]. Level 2 documentation prepared. Trying to connect with guardian about whether medical necessity exists for hospitalization until when this new facility would be ready. Current plan for discharge on . Spoke to guardian's office and facility trying to find an alternative for her to go to while waiting for level 2 to clear. We agreed to discharge the morning and give him a little time to possibly make that happen. The guardian and [facility] facility requesting we hold patient while they find placement. Plan to discharge today was aborted because the right hip being hopeful until later until it was a time that was unreasonable given the concerns about the excepting facility. We discharged Involuntary Hold Information 96 Hour Hold: 96 Hour Involuntary Admission: No Attestations NPU Medical Necessity Statement*: Inpatient hospitalization is medically necessary and the clinically appropriate intervention at this time. We will monitor medications and make changes as indicated. Likely length of stay 1-2 days. Coding Level of Care Code Acute Code for Chg Fwd Diagnoses Acute psychosis F23 Depression F32.A Intellectual disability F79 Impulse control disorder in adult F63.9 Cannabis use disorder F12.90 Methamphetamine use disorder, severe F15.20
--- NOTE | 2023-04-02 14:55 | P.NPUDS_ITS ---
Diagnoses at Discharge Discharge Diagnosis (1) Acute psychosis: Status: Acute (2) Depression: Status: Acute (3) Intellectual disability: Status: Acute (4) Impulse control disorder in adult: Status: Acute (5) Cannabis use disorder: Status: Acute (6) Methamphetamine use disorder, severe: Status: Acute Reason for Visit Reason for Visit: Gen weakness/ Headache Involuntary Hold Information 96 Hour Hold: 96 Hour Involuntary Admission: No Mental Status Exam MSE Comments: This is an obese versus morbidly obese white female in hospital scrubs with poor grooming and limited eye contact. No abnormal movements except for psychomotor retardation. More cooperative with exam in mild distress. Speech was more spontaneous and decreased rate and volume. Mood described as better, affect less subdued. Thought process linear. Thought content: Patient did not report suicidal or homicidal ideation, there were no delusions reported or noted, though she did appear quite guarded she did not report auditory or visual hallucinations and did not appear to be attending to internal stimuli. Attention and concentration were limited and memory was unreliable but none were formally tested. She is alert and oriented times person and place. Insight, judgment and impulse control are impaired. Intellectual ability is limited versus impaired. Discharge Data Studies Completed and Pending: Completed Studies During Hospitalization Category Date Time Status CT head wo con* 7 0450 Stat Cat Scan 03/24/23 15:45 Completed Radiology Impressions Head CT 03/24/23 15:[address]: [address] evidence of acute intracranial pathology. 2. Additional findings, as above. Laboratory Results WBC 7.33 10^3/uL (3.2 9-11.43) 03/24/23 16:04 RBC 4.55 10^6/uL (3.8 5-5.65) 03/24/23 16:04 Hgb 13.70 g/dL (11.27 -16.99) 03/24/23 16:04 Hct 41.3 % (36-47) 03/24/23 16:04 MCV 90.8 fl (85-98) 03/24/23 16:04 MCH 30.1 pg (27-33) 03/24/23 16:04 MCHC 33.2 g/dL (30-55) 03/24/23 16:04 RDW 12.6 % (12.1-15.1 ) 03/24/23 16:04 Plt Count 231 10^3/cmm (157 -399) 03/24/23 16:04 MPV 10.9 fL (7.4-10.4 ) H 03/24/23 16:04 Neut % (Auto) 51.7 % 03/24/23 16:04 Lymph % (Auto) 38.9 % 03/24/23 16:04 [place] % (Auto) 6.5 % 03/24/23 16:04 Eos % (Auto) 1.9 % 03/24/23 16:04 Baso % (Auto) 0.7 % 03/24/23 16:04 Neut # (Auto) 3.79 10^3/uL (1.8 -7.7) 03/24/23 16:04 Lymph # (Auto) 2.9 10^3/uL (0.8- 4.8) 03/24/23 16:04 [place] # (Auto) 0.5 10^3/uL (0.2- 0.9) 03/24/23 16:04 Eos # (Auto) 0.1 10^3/uL (0.0- 0.8) 03/24/23 16:04 Baso # (Auto) 0.1 10^3/uL (0.0- 0.1) 03/24/23 16:04 Nucleated RBC % (a uto) 0 % 03/24/23 16:04 Nucleated RBCs # 0.0 /100WBC 03/24/23 16:04 Sodium 144 mmol/L (136-1 45) 03/24/23 16:04 Potassium 3.2 mmol/L (3.5-5 .1) L 03/24/23 16:04 Chloride 104 mmol/L (98-10 7) 03/24/23 16:04 Carbon Dioxide 32 mmol/L (22-29) H 03/24/23 16:04 Anion Gap 11.2 (5-19) 03/24/23 16:04 BUN 12 mg/dL (6-20) 03/24/23 16:04 Creatinine 0.7 mg/dL (0.5-0. 9) 03/24/23 16:04 GFR Calculation 100.4 mL/min (90- 130) 03/24/23 16:04 Glucose 108 mg/dL (65-115 ) 03/24/23 16:04 Calculated Osmolal ity 298 mOsm/kg (285- 295) H 03/24/23 16:04 Calcium 9.3 mg/dL (8.5-10 .5) 03/24/23 16:04 Total Bilirubin 0.2 mg/dL (0.15-1 .2) 03/24/23 16:04 AST 20 U/L (0-32) 03/24/23 16:04 ALT 29 U/L (0-33) 03/24/23 16:04 Alkaline Phosphata se 63 U/L (35-105) 03/24/23 16:04 Total Protein 6.5 g/dL (6.6-8.7 ) L 03/24/23 16:04 Albumin 4.2 g/dL (3.5-5.2 ) 03/24/23 16:04 Globulin 2.3 g/dL (1.3-4.6 ) 03/24/23 16:04 Urine Color Dark yellow (Yel low) 03/24/23 16:29 Urine Appearance Sl cloudy (CLEAR ) A 03/24/23 16:29 Urine pH 6 (5-7) 03/24/23 16:29 Ur Specific Gravit y 1.025 (1.005-1.0 30) 03/24/23 16:29 Urine Protein Neg (Negative) 03/24/23 16:29 Urine Glucose (UA) Norm (Normal) 03/24/23 16:29 Urine Ketones Negative (Negati ve) 03/24/23 16:29 Urine Blood 2+ (Negative) H 03/24/23 16:29 Urine Nitrate Negative (Negati ve) 03/24/23 16:29 Urine Bilirubin 1+ (Negative) H 03/24/23 16:29 Urine Urobilinogen 1 mg/dL (Negative ) H 03/24/23 16:29 Ur Leukocyte Kimmy ase Negative (Negati ve) 03/24/23 16:29 Urine RBC 0-4 /hpf (0-2) H 03/24/23 16:29 Urine WBC 0-4 /hpf (0-5) H 03/24/23 16:29 Ur Squamous Epith Cells 25-40 /hpf (0-5) H 03/24/23 16:29 Calcium Oxalate Cr ystal 0-4 /hpf H 03/24/23 16:29 Amorphous Sediment Not Reportable 03/24/23 16:29 Urine Bacteria 1+ /hpf (NONE) H 03/24/23 16:29 Urine Mucus 1+ /hpf 03/24/23 16:29 Salicylates 1.0 mg/dL (3-10) L 03/24/23 16:04 Urine Opiates Scre en Negative ng/mL (N egative) 03/24/23 16:29 Acetaminophen < 5.0 ug/mL (10-3 0) L 03/24/23 16:04 Ur Barbiturates Sc reen Negative ng/mL (N egative) 03/24/23 16:29 Ur Phencyclidine S crn Negative ng/mL (N egative) 03/24/23 16:29 Ur Amphetamines Sc reen Positive ng/mL (N egative) H 03/24/23 16:29 U Benzodiazepines Scrn Negative ng/mL (N egative) 03/24/23 16:29 Urine Cocaine Scre en Negative ng/mL (N egative) 03/24/23 16:29 U Marijuana (THC) Screen Positive ng/mL (N egative) H 03/24/23 16:29 Ethyl Alcohol < 10 mg/dL (0-10) 03/24/23 16:04 Coronavirus 229E ( PCR) Not detected (NO T DETECT) 03/24/23 17:40 SARS-CoV-2 (PCR) Not detected (NO T DETECT) 03/24/23 17:40 Vitals: Last Vital Signs Temp 97.8 F 04/02/23 14:00 Pulse 60 04/02/23 14:00 Resp 17 04/02/23 14:00 BP 121/80 04/02/23 14:00 Pulse Ox 100 04/02/23 14:00 O2 Del Method Room Air 04/02/23 06:00 Discharge Plan Discharge Patient Disposition: Home Condition: Stable Prescriptions: Continued Seroquel 300 mg Tablet 300 mg PO QPM Klonopin 1 mg Tablet 1 mg PO BID PRN (Reason: Anxiety) prazosin 2 mg Capsule 2 mg PO QPM Thorazine 50 mg Tablet 50 mg PO TID melatonin 5 mg Tablet 5 mg PO DAILY Discharge Orders: Discharge Order (Routine); Ordered 04/02/23 Ordered By: Fernie Falk Discharge Diet: Regular Discharge Activity: Resume usual activity Patient Instructions: Opioid Safety Discharge Attestations NPU Time Spent in Discharge Care*: less than 30 min Specific Discharge Activities: Specific discharge activities: educating patient, discussing with correctional casework specialist/social workers/dc planners, documenting/other paperwork and evaluating patient/reviewing data Coding Level of Care Code Acute Chg FW DC note Diagnoses Acute psychosis F23 Depression F32.A Intellectual disability F79 Impulse control disorder in adult F63.9 Cannabis use disorder F12.90 Methamphetamine use disorder, severe F15.20
[2023-04-02 14:59] VITALS: BP 121/80; PULSE 60; RESP 17; TEMP 36.6; O2SAT 100
[2023-04-02 19:51] VITALS: BP 97/71; PULSE 122; RESP 20; TEMP 37; O2SAT 93
[2023-04-02] MEDS: acetaminophen 325 mg Tablet 650 MG PO (20:20)
[2023-04-02] MEDS: prazosin 1 mg Capsule 2 MG PO (20:20)
[2023-04-02] MEDS: CLONazepam 1 mg Tablet PO (20:20)
[2023-04-02] MEDS: quetiapine 300 mg Tablet PO (20:20)
--- NOTE | 2023-04-02 21:11 | PC.NURSE ---
[facility] called back stating that they had a [facility] for her. Notified Dr. Falk of how late transport was set up, and he stated it was too late to d/c pt thompson. Pt to d/c back tomorrow.
[2023-04-03 06:00] VITALS: BP 128/77; PULSE 99; RESP 18; O2SAT 94
[2023-04-03] MEDS: blistex lip oint 7 gm Tube 1 APPLIC TOPICAL (07:47)
[2023-04-03] MEDS: nicotine 2 mg Gum BUCCAL (08:25)
[2023-04-03] MEDS: chlorPROMazine 50 mg Tablet PO (09:20)
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
== END 2023-04-03 10:04 | disposition home or self-care (01) | DRG 885 ==
LOC: ER 17:26 → NP 17:26
PROVIDERS: Admitting Provider Psychiatry & Neurology Psychiatry; Emergency Provider Emergency Medicine; Visit Provider Psychiatry & Neurology Psychiatry
DX: F23 Brief psychotic disorder (principal); F15.129 Other stimulant abuse with intoxication, unspecified; F12.129 Cannabis abuse with intoxication, unspecified; F79 Unspecified intellectual disabilities; Z91.148 Patient's other noncompliance with medication regimen for other reason
CPT/HCPCS: 36415; 70450; 80053; 80306; 80307; 81001; 85025; 87635; 96361; 96374; 96375; 97150; 97165; 99285; J1100; J1200; J1885; J7030; Q0161